=== PATIENT | male | born 1975 | race Caucasian/White ===

== ENCOUNTER 2023-03-18 18:13 | Outpatient (CLI) | payer MEDICARE, MEDICAID | END 2023-03-18 18:14 | disposition critical access hospital (66) | LOC: EMS 18:13 | DX: R51.9 Headache, unspecified (principal); R11.2 Nausea with vomiting, unspecified; R42 Dizziness and giddiness | CPT/HCPCS: A0425; A0427 ==

== ENCOUNTER 2023-03-18 18:37 | Emergency (ER) | payer MEDICARE, MEDICAID ==
[2023-03-18] MEDS ORDERED: SODIUM CHLORIDE 0.9% 1,000 ML IV STA ×2 (18:42→20:05)
--- NOTE | 2023-03-18 18:45 | ED Physician Documentation ---
History of Present Illness - Stated complaint Stated Complaint: DEHYDRATION - Additonal information Additional information: 47-year-old male who has a history Mo significant cerebral palsy presents emergency department for evaluation of concerns of dehydration and near syncope. He has been helping his brother in the yard over the course of the weekend. His brother reported to EMS they were trying to keep him hydrated but not sure if they were successful. This evening after dinner the patient took a shower. He then sat on the couch turned ashen harden and began vomiting. His brother thinks he may have been complaining of a headache. Patient's brother reports concerns that they thought maybe he had lettuce stuck in his throat.. Patient takes no prescribed medications. He is mostly nonverbal due to the severity of the cerebral palsy. History obtained by EMS and brother Review of Systems Unable to obtain: Other (As per HPI.) PD PAST MEDICAL HISTORY - Present Medications Home Medications: Ambulatory Orders Medication Instructions Recorded Confirmed Maltodextrin/Xanthan Gum [Thicken 125 gm PO TID PRN #125 gm 03/18/23 Up Clear Powder] - Allergies Allergies/Adverse Reactions: Allergies Allergy/AdvReac Type Severity Reaction Status Date / Time No Known Drug Allergies Allergy Verified 03/18/23 18:43 PD ED PE NORMAL - General General: Alert and oriented X 3, No acute distress, Well developed/nourished - HEENT HEENT: Atraumatic, Moist mucous membranes - Neck Neck: Supple, no meningeal sign, No adenopathy - Cardiac Cardiac: RRR, No murmur - Respiratory Respiratory: No respiratory distress - Derm Derm: Normal color, Warm and dry, No rash - Extremities Extremities: No deformity - Neuro Eye Opening: Spontaneous Motor: Obeys Commands Verbal: Oriented GCS Score: 15 Results - Vitals Vitals: Vital Signs - 24 hr 03/18/23 18:40 Temperature 36.4 C L Heart Rate 58 L Respiratory 18 Rate Blood Pressure 115/80 O2 Saturation 96 Oxygen O2 Source Room air - Labs Labs: Laboratory Tests 03/18/23 03/18/23 18:54 18:54 WBC 4.2 L RBC 4.40 L Hgb 13.4 L Hct 39.7 L MCV 90.2 MCH 30.5 MCHC 33.8 RDW 11.9 L Plt Count 127 L MPV 10.3 Neut # (Auto) 3.0 Lymph # (Auto) 0.9 L [place] # (Auto) 0.3 Eos # (Auto) 0.0 Baso # (Auto) 0.0 Absolute Nucleated RBC 0.00 Nucleated RBC % 0.0 Sodium 143 Potassium 3.6 Chloride 111 Carbon Dioxide 27 Anion Gap 5.0 L BUN 19 Creatinine 0.8 Estimated GFR (MDRD) 105 Glucose 113 H Calcium 7.9 L Total Bilirubin 1.1 H AST 19 ALT 18 Alkaline Phosphatase 58 Total Protein 6.5 L Albumin 3.5 Globulin 3.0 Albumin/Globulin Ratio 1.2 Lipase 30 - Rads (name of study) cxr Relevant Findings:: Final report received (No acute cardiopulmonary process) CT head Relevant Findings:: Final report received (No acute intracranial abnormality. Microvascular ischemic disease and age-related cerebral volume loss) PD Medical Decision Making - ED course Complexity details: reviewed results, re-evaluated patient, considered differential, d/w patient, d/w family ED course: 47-year-old male who has a history of cerebral palsy presents emergency department for evaluation of a near syncopal event and vomiting. He has been working the last 2 days helping his brother in the yard. His family reports they have a difficult time making sure that he stays hydrated due to some dysphagia. After dinner today he took a shower and then went to sit on the couch and when he did his brother reports he got suddenly ashen and harden and then vomited everywhere. Reportedly the brother said he had a headache. However the patient has a very difficult to understand speech which is garbled. On presentation to the emergency department the patient presents alert and well- appearing. He does not have any obvious focal deficits but again the exam was limited due to the history of cerebral palsy and speech deficits. We did obtain a CBC and electrolytes and per my interpretation His CBC does show a mild leukopenia though no worrisome anemia. His calcium was noted to be 7.9 today. I did offer to replete the calcium today in the emergency department but the patient's brother declined that.. Given the family concerned that the patient could have aspirated or coughed and choked when he vomited a chest x-ray was obtained that showed no acute focal findings suggest pneumonia pneumothorax or pleural effusion. As his brother was concerned that he had reported a headache prior to vomiting a CT scan was obtained to rule out any findings suggest subarachnoid hemorrhage or intracranial bleed. Reassuringly this was negative. I do not suspect the patient of having any acute infarct or stroke. Here in the emergency department the patient was given 2 L of IV fluid and following this Patient was feeling much better. Patient's brother requested to take him home. As such at this time I feel the patient is clinically stable to go home. I suspect much of the symptoms were related to physical exertion and possibly dehydration. Family has requested that I prescribe thickening agent to help him stay better hydrated which I have sent to the [facility] in [place]. Departure - Departure Disposition: Home, Self Care Clinical Impression: History of cerebral palsy Vomiting Qualifiers: Vomiting type: unspecified Nausea presence: without nausea Qualified Code(s): R11.11 - Vomiting without nausea Prescriptions: Maltodextrin/Xanthan Gum [Thicken Up Clear Powder] 125 gm PO TID PRN #125 gm PRN Reason: Per Physician Order Comments: Raghavendra was seen today in the emergency department after working in the yard for the last several days and then eating dinner, showering and sitting on the couch where he got suddenly ashen, harden and then began vomiting. The chest x-ray obtained today in the emergency department showed no findings of pneumonia, aspiration, pleural effusions or an enlarged heart. We did obtain CBC and electrolytes. Per my interpretation the most pertinent finding was that of a mildly low calcium. A CT of the head was completed today and it did not show any intracranial findings to suggest bleeding within the brain. We did give him 2 L of IV fluids here in the emergency department. . It is possible that Raghavendra was simply dehydrated. This can cause nausea and vomiting. I have sent a prescription for a thickening agent to the [facility] in [place]. However these agents are available [id number] at all pharmacies. I recommend that you thicken his liquids with this agent either to the nectar or honey thick. This may help you increase his hydration status. Please establish him with a primary care provider here on the [place] as soon as you are able. Do not hesitate to return to the ER with any other emergent worrisome concerns
[2023-03-18 18:49] VITALS: BP 115/80
[2023-03-18 18:59] LABS: BASOPHILS % (AUTO) 0.7 %; EOSINOPHILS % (AUTO) 0.7 %; HCT - HEMATOCRIT 39.7 % (42.0-52.0); HGB - HEMOGLOBIN 13.4 g/dL (14.0-18.0); LYMPHOCYTES # (AUTO) 0.9 10^3/uL (1.5-3.5); LYMPHOCYTES % (AUTO) 21.6 %; MEAN CORPUSCULAR HEMOGLOBIN 30.5 pg (27.0-31.0); MEAN CORPUSCULAR HGB CONC 33.8 g/dL (32.0-36.0); MEAN CORPUSCULAR VOLUME 90.2 fL (80.0-94.0); MEAN PLATELET VOLUME 10.3 fL (7.4-11.4); MONOCYTES # (AUTO) 0.3 10^3/uL (0.0-1.0); MONOCYTES % (AUTO) 6.7 %; NEUTROPHILS % (AUTO) 70.1 %; PLT - PLATELET COUNT 127 10^3/uL (130-450); RED CELL DISTRIBUTION WIDTH 11.9 % (12.0-15.0); WHITE BLOOD COUNT 4.2 x10^3/uL (4.8-10.8)
--- NOTE | 2023-03-18 19:04 | XRAY Report ---
PROCEDURE: Chest 1 View X-Ray INDICATIONS: chest pain TECHNIQUE: One view of the chest was acquired. COMPARISON: None. FINDINGS: Surgical changes and devices: None. Lungs and pleura: No pleural effusions or pneumothorax. Lungs are clear. Mediastinum: Mediastinal contours appear normal. Heart size is normal. Bones and chest wall: No suspicious bony lesions. Overlying soft tissues appear unremarkable. IMPRESSION: No acute cardiopulmonary process. Reviewed by: Tony Sanchez DO on 03/18/2023 6:03 PM ALEXI Approved by: Tony Sanchez DO on 03/18/2023 6:03 PM ALEXI Station ID: [id number]
[2023-03-18 19:11] LABS: ALBUMIN 3.5 g/dL (3.2-5.5); ALBUMIN/GLOBULIN RATIO 1.2 (1.0-2.2); BILIRUBIN,TOTAL 1.1 mg/dL (0.2-1.0); CALCIUM 7.9 mg/dL (8.5-10.3); CREATININE 0.8 mg/dL (0.6-1.2); POTASSIUM 3.6 mmol/L (3.5-5.0); TOTAL PROTEIN 6.5 g/dL (6.7-8.2)
--- NOTE | 2023-03-18 19:14 | CT Report ---
PROCEDURE: HEAD WO INDICATIONS: moran and vomiting; hx of CP TECHNIQUE: Noncontrast 4.5 mm thick angled axial sections acquired from the foramen magnum to the vertex. For r adiation dose reduction, the following was used: automated exposure control, adjustment of mA and/or kV according to patient size. COMPARISON: None. FINDINGS: Image quality: Excellent. CSF spaces: Basal cisterns are patent. No extra-axial fluid collections. Ventricles are normal in size and shape. Brain: No midline shift. No intracranial masses or hemorrhage. Keller-white matter interface is norm al. Skull and face: Calvarium and visualized facial bones are intact, without suspicious lesions. Sinuses: Visualized sinuses and mastoids are clear. IMPRESSION: 1. No acute intracranial abnormality. 2. Microvascular ischemic disease and age-related cerebral volume loss. Reviewed by: Fuad Stapleton on 03/18/2023 7:13 PM PDT Approved by: Fuad Stapleton on 03/18/2023 7:13 PM PDT Station ID: [id number]
[2023-03-18] MEDS ORDERED: CALCIUM GLUC 1,000MG/50ML-NACL 1,000 MG/50 ML BAG IV STA (20:31)
== END 2023-03-18 20:51 | disposition home or self-care (01) ==
LOC: ED 18:37
DX: R11.11 Vomiting without nausea (principal); G80.9 Cerebral palsy, unspecified
CPT/HCPCS: 36415; 80053; 83690; 85025; 96360; 96361; 99284

== ENCOUNTER 2023-03-26 16:58 | Outpatient (CLI) | payer MEDICARE, MEDICAID | END 2023-03-26 16:59 | disposition critical access hospital (66) | LOC: EMS 16:58 | DX: R11.10 Vomiting, unspecified (principal); R10.9 Unspecified abdominal pain; R51.9 Headache, unspecified; R39.89 Other symptoms and signs involving the genitourinary system; R63.8 Other symptoms and signs concerning food and fluid intake; R00.1 Bradycardia, unspecified | CPT/HCPCS: A0425; A0427 ==

== ENCOUNTER 2023-03-26 17:25 | Emergency (ER) | payer MEDICARE, MEDICAID ==
[2023-03-26] MEDS ORDERED: SODIUM CHLORIDE 0.9% 1,000 ML IV STA (17:53)
[2023-03-26 18:10] LABS: BASOPHILS % (AUTO) 0.3 %; EOSINOPHILS # (AUTO) 0.1 10^3/uL (0.0-0.7); EOSINOPHILS % (AUTO) 0.6 %; HCT - HEMATOCRIT 40.7 % (42.0-52.0); HGB - HEMOGLOBIN 14.1 g/dL (14.0-18.0); LYMPHOCYTES % (AUTO) 10.2 %; MEAN CORPUSCULAR HEMOGLOBIN 30.7 pg (27.0-31.0); MEAN CORPUSCULAR HGB CONC 34.6 g/dL (32.0-36.0); MEAN CORPUSCULAR VOLUME 88.5 fL (80.0-94.0); MONOCYTES # (AUTO) 0.5 10^3/uL (0.0-1.0); MONOCYTES % (AUTO) 5.5 %; NEUTROPHILS # (AUTO) 7.7 10^3/uL (1.5-6.6); NEUTROPHILS % (AUTO) 82.8 %; PLT - PLATELET COUNT 142 10^3/uL (130-450); RED CELL DISTRIBUTION WIDTH 11.9 % (12.0-15.0); WHITE BLOOD COUNT 9.3 x10^3/uL (4.8-10.8)
[2023-03-26] MEDS ORDERED: MECLIZINE 12.5 MG TABLET PO STA (18:22)
[2023-03-26 18:23] LABS: ALBUMIN 3.7 g/dL (3.2-5.5); ALBUMIN/GLOBULIN RATIO 1.2 (1.0-2.2); BILIRUBIN,TOTAL 0.6 mg/dL (0.2-1.0); CALCIUM 8.2 mg/dL (8.5-10.3); CREATININE 0.8 mg/dL (0.6-1.2); POTASSIUM 3.9 mmol/L (3.5-5.0); TOTAL PROTEIN 6.7 g/dL (6.7-8.2)
[2023-03-26] MEDS ORDERED: ONDANSETRON 4 MG/2 ML VIAL IVP STA (18:24)
--- NOTE | 2023-03-26 18:24 | ED Physician Documentation ---
History of Present Illness - Stated complaint Stated Complaint: N/V - Chief complaint Chief Complaint: Neuro - History obtained from History obtained from: Patient, Family, EMS - History of Present Illness Timing: Today Pain level max: 0 Pain level now: 0 - Additonal information Additional information: 47-year-old male, history of cerebral palsy brought in by ambulance for sudden onset dizziness and vomiting today. Had reported left-sided nystagmus as well. Patient has limited verbal abilities. His brother is here with him in the emergency department. No injuries. No fevers. No chills. Review of Systems Unable to obtain: Other (Cerebral palsy) Constitutional: denies: Fever Respiratory: denies: Cough Skin: denies: Rash PD PAST MEDICAL HISTORY - Past Medical History Past Medical History: Yes Neuro: Cerebral palsy - Past Surgical History Past Surgical History: No - Present Medications Home Medications: Ambulatory Orders Medication Instructions Recorded Confirmed Maltodextrin/Xanthan Gum [Thicken 125 gm PO TID PRN #125 gm 03/18/23 Up Clear Powder] Meclizine HCl [Motion Sickness] 25 mg PO Q6H PRN #30 tablet 03/26/23 Ondansetron Odt [Zofran] 4 mg TL Q6H PRN #10 tablet 03/26/23 - Allergies Allergies/Adverse Reactions: Allergies Allergy/AdvReac Type Severity Reaction Status Date / Time No Known Drug Allergies Allergy Verified 03/18/23 18:43 - Social History Does the pt smoke?: No Smoking Status: Never smoker Does the pt drink ETOH?: No Does the pt have substance abuse?: No - Immunizations Immunizations are current?: Yes PD ED PE NORMAL - Vitals Vital signs reviewed: Yes - General General: No acute distress, Well developed/nourished, Other (Alert, no acute distress) - HEENT HEENT: PERRL, Ears normal, Moist mucous membranes, Pharynx benign - Neck Neck: Supple, no meningeal sign - Cardiac Cardiac: RRR - Respiratory Respiratory: No respiratory distress, Clear bilaterally - Abdomen Abdomen: Soft, Non tender, Non distended - Derm Derm: Warm and dry - Extremities Extremities: Normal ROM s pain - Neuro Neuro: Other (No nystagmus currently. Extraocular movements intact. no ocular palsy) Results - Vitals Vitals: Vital Signs - 24 hr 06/12/23 06/12/23 17:31 19:57 Temperature 37 C Heart Rate 55 L 69 Respiratory 18 18 Rate Blood Pressure 110/73 130/79 O2 Saturation 100 98 Oxygen O2 Source Room air - Labs Labs: Laboratory Tests 03/26/23 03/26/23 03/26/23 18:05 18:05 19:22 WBC 9.3 RBC 4.60 L Hgb 14.1 Hct 40.7 L MCV 88.5 MCH 30.7 MCHC 34.6 RDW 11.9 L Plt Count 142 MPV 10.0 Neut # (Auto) 7.7 H Lymph # (Auto) 1.0 L [place] # (Auto) 0.5 Eos # (Auto) 0.1 Baso # (Auto) 0.0 Absolute Nucleated RBC 0.00 Nucleated RBC % 0.0 Sodium 139 Potassium 3.9 Chloride 106 Carbon Dioxide 28 Anion Gap 5.0 L BUN 18 Creatinine 0.8 Estimated GFR (MDRD) 105 Glucose 102 H Calcium 8.2 L Total Bilirubin 0.6 AST 21 ALT 19 Alkaline Phosphatase 61 Total Protein 6.7 Albumin 3.7 Globulin 3.0 Albumin/Globulin Ratio 1.2 Lipase 41 Urine Color YELLOW Urine Clarity CLEAR Urine pH 7.0 Ur Specific [place] 1.020 Urine Protein NEGATIVE Urine Glucose (UA) NEGATIVE Urine Ketones TRACE Urine Occult Blood NEGATIVE Urine Nitrite NEGATIVE Urine Bilirubin NEGATIVE Urine Urobilinogen 0.2 (NORMAL) Ur Leukocyte Esterase NEGATIVE Ur Microscopic Review NOT INDICATED Urine Culture Comments NOT INDICATED PD Medical Decision Making - ED course Complexity details: reviewed results, re-evaluated patient, considered differential, d/w patient ED course: Symptoms resolved with meclizine and Zofran. Tolerating p.o. without difficulty. No longer feels dizzy. Headache resolved as well. Findings on laboratory testing, CBC, ER abdominal panel or urinalysis. He had a head CT on the fourth. We did discuss repeating this, but as his symptoms have currently resolved, we will hold off on repeating this. The patient had been complaining of flank pain to his brother, therefore urinalysis was obtained, this is negative as well. No focal neurological deficits. No evidence of acute stroke. We will treat as BPPV and have him follow-up with his PCP for further care. Family counseled regarding signs and symptoms for which I believe and urgent re- evaluation would be necessary. Family with good understanding of and agreement to plan and is comfortable going home at this time This document was made in part using voice recognition software. While efforts are made to proofread this document, sound alike and grammatical errors may occur. Departure - Departure Disposition: 01 Home, Self Care Clinical Impression: Vertigo Condition: Good Instructions: ED BPV Vertigo, ED Vertigo Unspecified Follow-Up: your,doctor in 1 week [Other] Prescriptions: Meclizine HCl [Motion Sickness] 25 mg PO Q6H PRN #30 tablet PRN Reason: Dizziness Ondansetron Odt [Zofran] 4 mg TL Q6H PRN #10 tablet PRN Reason: Nausea / Vomiting Comments: Your prescriptions were sent to [facility] in [place]. Please follow-up with his doctor as needed for further care. Please return if he worsens. He appears to have what we call BPPV, benign paroxysmal positional vertigo today causing his dizziness and vomiting. This should improve on its own. You can use the meclizine as needed at home. Discharge Date/Time: 03/26/23 20:49
[2023-03-26 19:57] LABS: BILIRUBIN,URINE NEGATIVE (NEGATIVE); GLUCOSE, URINE (UA) NEGATIVE (NEGATIVE); KETONES,URINE (UA) TRACE mg/dL (NEGATIVE); LEUKOCYTE ESTERASE, URINE NEGATIVE (NEGATIVE); NITRITE,URINE NEGATIVE (NEGATIVE); OCCULT BLOOD,URINE NEGATIVE (NEGATIVE); PROTEIN,URINE NEGATIVE (NEGATIVE); UROBILINOGEN,URINE 0.2 (NORMAL) E.U./dL (NORMAL)
[2023-03-26 20:01] VITALS: BP 130/79
[2023-03-26 20:02] LABS: CLARITY,URINE CLEAR (CLEAR)
== END 2023-03-26 20:49 | disposition home or self-care (01) ==
LOC: EDUNIT# → ED 17:25
DX: R42 Dizziness and giddiness (principal)
CPT/HCPCS: 36415; 80053; 81003; 83690; 85025; 96374; 99283; 99284; A9270; 81001; 87086